=== PATIENT | male | born 1965 | race Caucasian/White ===

== ENCOUNTER 2025-05-01 22:33 | Emergency (ER) | payer MEDICAID ==
[~2025-05-01] VITALS: Ht 167.6 cm; Wt 72.6 kg
[2025-05-01] MEDS ORDERED: AMOX-430 PO (23:32)
[2025-05-01] MEDS ORDERED: TDAP [DIPH/PERTUSSIS/TET] 0.5 ML VIAL IM ONE (23:39)
[2025-05-01] MEDS ORDERED: AMOX/CLAVULANATE 875 MG TABLET ONE (23:39)
[2025-05-01] MEDS: TDAP [DIPH/PERTUSSIS/TET] 0.5 ML VIAL IM ONE (23:48)
[2025-05-01] MEDS: AMOX/CLAVULANATE 875 MG TABLET PO ONE (23:48)
[2025-05-01 23:49] VITALS: BP 144/71; TEMP 99; O2SAT 96
== END 2025-05-01 23:49 | disposition home or self-care (01) ==
LOC: ER 22:58 → EDSEX 22:58 → ER 23:49
DX: L03.012 Cellulitis of left finger (principal); W54.0XXA Bitten by dog, initial encounter; Y93.89 Activity, other specified; Y92.89 Other specified places as the place of occurrence of the external cause; Y99.8 Other external cause status
CPT/HCPCS: 90715